=== PATIENT | female | born 1960 | race Caucasian/White ===

== ENCOUNTER → 2021-08-20 | Outpatient (CLI) | payer OTHER ==
[~2021-08-20] MED LIST: CELEBREX100 MG/1 C PO; COREG25 MG PO; DICLOFENAC SODI75 MG PO; LISINOPRIL10 MG PO; LOVASTATIN 20 M20 MG PO; NORCO 5-325 TA1 EACH PO; NORVASC10 MG PO; OXYCONTIN10 M1 PO; WELLBUTRIN SR150 MG PO; XARELTO10 M1 PO
== END ==
LOC: CAT 08-08 13:15
PROVIDERS: ATTEND Internal Medicine Hematology & Oncology
DX: M47.816 Spondylosis without myelopathy or radiculopathy, lumbar region (principal); I25.10 Atherosclerotic heart disease of native coronary artery without angina pectoris; Z85.89 Personal history of malignant neoplasm of other organs and systems